=== PATIENT | female | born 1975 | race Hispanic/Latino ===

== ENCOUNTER 2017-09-05 18:02 | Inpatient (IN) | payer OTHER ==
[2017-09-05 18:09] VITALS: O2SAT 98
--- NOTE | 2017-09-05 18:13 | C.PDOC ---
History Of Present Illness Transferred from [facility] for bizarre behaviour, Denies SI or HI Time Seen by Provider: 09/05/17 18:11 Chief Complaint (Nursing): Psychiatric Evaluation History Per: Patient History/Exam Limitations: clinical condition Current Symptoms Are (Timing): Still Present Suicide/Self Injury Attempted (Context): None Modifying Factor(s): None Severity: Mild Recent travel outside of the [place]: No Additional History Per: Patient, Other (transfer records) Past Medical History Reviewed: Historical Data, Nursing Documentation, Vital Signs Vital Signs: Last Vital Signs Temp 98.2 F 09/05/17 18:08 Pulse 102 H 09/05/17 18:08 Resp 20 09/05/17 18:08 BP 121/86 09/05/17 18:08 Pulse Ox 98 09/05/17 18:30 - Medical History PMH: No Chronic Diseases, Bipolar Disorder Surgical History: No Surg Hx Family History: States: Unknown Family Hx - Social History Hx Alcohol Use: No Hx Substance Use: No - Immunization History Hx Tetanus Toxoid Vaccination: No Hx Influenza Vaccination: No Hx Pneumococcal Vaccination: No Review Of Systems Psych: Positive for: Other (behavior problem) Physical Exam - Physical Exam Appears: Non-toxic, No Acute Distress Skin: Normal Color Cardiovascular: Rhythm Regular Respiratory: Normal Breath Sounds Neurological/Psych: Oriented x3 Gait: Steady ED Course And Treatment O2 Sat by Pulse Oximetry: 98 Progress Note: Transferred for Psych admission. Case discussed with garbage worker who request admission - Physician Consult Information Physician Contacted: Sravan Prescott Outcome Of Conversation: admit Disposition Discussed With : Sravan Prescott Doctor Will See Patient In The: Hospital - Disposition Disposition: HOSPITALIZED Disposition Time: 18:30 Condition: STABLE - POA Present On Arrival: None - Clinical Impression Clinical Impression: Bipolar 1 disorder Decision To Admit - Pt Status Changed To: Hospital Disposition Of: Inpatient - Admit Certification Admit to Inpatient:: After my assessment, the patient will require hospitalization for at least two midnights. This is because of the severity of symptoms shown, intensity of services needed, and/or the medical risk in this patient being treated as an outpatient. - InPatient: Physician Admission Certification: I certify that this patient requires 2 or more midnights of care for the following reason:: Bipolar disorder - . Bed Request Type: Psychiatry Admitting Physician: Sravan Prescott Patient Diagnosis: Bipolar 1 disorder
--- NOTE | 2017-09-05 20:45 | PCM.BM ---
<Xavier Ng - Last Filed: 09/06/17 14:58> Treatment Plan Problems - Problems identified on initial assessmt Depression Date Initiated: 09/05/17 Time Initiated: 18:30 Assessment reference: NA Status: Active Treatment assets and liabiliti Patient Assests: ADL independent, physically healthy, good support system Patient Liabilities: live alone - Milieu Protocol Maintain good personal hygiene: daily Encourage regular showers, daily Remind patient to perform daily oral care Maintain personal safety: every shift Educate patient to report safety concerns to staff, every shift Monitor environment for contraband/sharps Medication safety: Monitor for expected outcome, potential side effects: every shift, Assess barriers to learning: every shift, Assess readiness for medication education: every shift <Enedina Segal - Last Filed: 09/07/17 15:45> Family Contact Family involvement: Family/SO is involved Family contact: Patient agrees to contact Family contact name: Denise Stevenson-sister Family contacted how many times per week?: 2 Family contact comment: "We will take patient home." - Goals for Treatment Patient goals for treatment: "I want to go home." Patient's family/SO goals for treatment: "To go back to taking medication." Discharge/Continuing Care - Education Needs Education Needs: Patient Medication, Patient Coping Skills - Discharge Discharge Criteria: Tolerates medication w/o severe side effects, Reduction of target symptoms Discharge to:: Home, With Family - Treatment Team Participation Discussed with Family/SO: Yes ("I agree with her discharge.") Was Patient/Family/SO present at Treatment Team Meeting: Yes <Sravan Prescott - Last Filed: 09/07/17 16:23> - Diagnosis (1) Bipolar 1 disorder Status: Acute Interventions: Assess/at just medications daily and/or as needed See patient on and individual dydyq1r per week to assess status of hallucinations and delusions Discussed risks, benefits, side effects and alternatives of medications. 09/07/17 16:23
--- NOTE | 2017-09-06 18:03 | PCM.PSYCH ---
Initial Psychiatric Evaluation - Initial Psychiatric Evaluation Type of Admission: Voluntary Legal Status: Capacity Chief Complaint (in patient's own words): Yesterday had some argument with my coworker. History of Present Illness and Precipitating Events: Patient is a 42 years old, , employed, greenlandic, female with history of bipolar disorder, noncompliant for last 1 month was transferred from [facility]. Patient reported that she lives and works in [place]. Yesterday she had an argument with her coworker. Her office called the police. Patient was taken to the police station. According to patient, she was released with one of her friend who drove her to [facility] from [place]. Patient was then transferred to [facility]. Patient reported following up with a psychiatrist in [place] and was taking Abilify 5 mg daily. Her psychiatrist changed her Abilify to Seroquel. Patient didn't like Seroquel and stop taking medication for last 1 month. Patient reported she was diagnosed with bipolar disorder 7 years ago. History of multiple admissions in [place]. Denied any depression, sleeping or appetite problem. Denied any current or past suicidal ideations, homicidal ideations or suicidal attempts. Patient reported she drinks alcohol occasionally. Denied use of any other drugs. She was born in [place]. Moved to [facility] in 2002. She is employed, lives alone. She is and has no children. Her height is 5 feet 4-1/2 inches and weight is 155 pounds. Earlier, patient's sister came to the hospital to visit the patient. Patient was informed that the visitations hours or later and patient cannot see her sister. Patient became angry and demanding that the frustration should override policy for her in order for her to see her sister. For many rules patient demanded that the administration should override rules for her as she is special. Current Medications: Active Medications Generic Name Dose Route Start Last Admin Trade Name Freq PRN Reason Stop Dose Admin Aripiprazole 5 mg 09/05/17 23:15 09/05/17 23:20 Abilify PO 5 mg HS ANGELA Administration Benztropine Mesylate 1 mg 09/05/17 20:07 Cogentin PO Q6H PRN EPS symptoms Gabapentin 300 mg 09/06/17 10:00 09/06/17 17:39 Neurontin PO Not Given BID ANGELA Haloperidol 5 mg 10/11/17 20:07 Haldol PO Q6H PRN Agitation Hydroxyzine HCl 25 mg 09/05/17 20:07 09/06/17 00:39 Atarax PO 25 mg Q6H PRN Administration Anxiety Ibuprofen 600 mg 09/06/17 15:45 09/06/17 15:53 Motrin Tab PO 600 mg Q6H PRN Administration Pain, severe (8-10) Past Psychiatric History - Past Psychiatric History Previous Treatment History: Inpatient History of Abuse: None reported History of ETOH/Drug Use: See HPI History of Family Illness: None reported Pertinent Medical Hx (Current Medical&Sleep Prob, Allergies): Allergies Allergy/AdvReac Type Severity Reaction Status Date / Time No Known Allergies Allergy Verified 09/05/17 18:07 No Known Home Med 09/05/17 Review of Systems - Psychiatric Psychiatric: Behavioral Changes, Irritability, Mood Swings Mental Status Examination - Personal Presentation Personal Presentation: Looks stated age - Affect Affect: Other (Angry) - Motor Activity Motor Activity: Psychomotor Agitation - Reliability in Providing Information Reliability in Providing Information: Poor, due to altered mood - Speech Speech: Relevant - Mood Mood: Other (Angry) - Formal Thought Process Formal Thought Process: No Impairment - Hallucinations/Delusions Hallucinations: Other Delusions: Granduer - Obsessions/Compulsions Obsessions: None Compulsions: None - Cognitive Functions Orientation: Person, Place, Situation, Time Sensorium: Alert Attention/Concentration: Attentive Abstract Thinking: [place] Estimate of Intelligence: Average Judgement: Imparied, as evidence by: Lack of insight into illness Memory: Recent intact, as evidence by: Other, Remote intact, as evidenced by: Ability to recall historical events - Risk Risk: Diminished functioning - Strength & Assets Inventory Strength & Assets Inventory: Family support, Cooperative - Limitations Limitations: Living alone DSM 5 DX - DSM 5 DSM 5 Diagnosis: Bipolar 1 disorder most recent episode manic - Recommended/Plan of Treatment Treatment Recommendations and Plan of Treatment: Patient education Supportive therapy We'll start Abilify, gabapentin We'll start other when necessary medications/. Projected ELOS: 8-10 Days - Smoking Cessation Smoking Cessation Initiated: No Reason for not providing: Patient doesn't smoke cigarettes
[2017-09-07 08:31] VITALS: BP 113/68; PULSE 81; RESP 19; TEMP 97.6
--- NOTE | 2017-09-07 16:27 | PCM.PYCHDC ---
Mental Status Examination - Mental Status Examination Orientation: Person, Place, Situation, Time Memory: Intact Mood: Neutral Affect: Other (appropriate) Speech: Appropriate Attention: WNL Concentration: WNL Association: WNL Fund of Knowledge: WNL Formal Thought Process: No Impairment Description of patient's judgement and insight: fair Psychotic Thoughts and Behaviors: none Suicidal Ideation: No Current Homicidal Ideation?: No Discharge Summary - Discharge Note Reason for Hospitalization: bipolar disorder Laboratory Data: reviewed Consultations:: List each consultation separately and include: 1. Reason for request. 2. Findings. 3. Follow-up Summary of Hospital Course include:: 1. Description of specific treatment plan utilized for patients during their course of treatmen. 2. Summarize the time- course for resolution of acute symptoms and/or regressed behaviors. 3. Describe issues identified and worked on during hospitalization. 4. Describe medication utilized. 5. Describe medical problems identified and treated. 6. 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 Patient reported that she lives and works in [place]. Yesterday she had an argument with her coworker. Her office called the police. Patient was taken to the police station. According to patient, she was released with one of her friend who drove her to [facility] from [place]. Patient was then transferred to [facility]. Patient reported following up with a psychiatrist in [place] and was taking Abilify 5 mg daily. Her psychiatrist changed her Abilify to Seroquel. Patient didn't like Seroquel and stop taking medication for last 1 month. Patient reported she was diagnosed with bipolar disorder 7 years ago. History of multiple admissions in [place]. Denied any depression, sleeping or appetite problem. Denied any current or past suicidal ideations, homicidal ideations or suicidal attempts. Patient reported she drinks alcohol occasionally. Denied use of any other drugs. She was born in [place]. Moved to [facility] in 2002. She is employed, lives alone. She is and has no children. Her height is 5 feet 4-1/2 inches and weight is 155 pounds. Earlier, patient's sister came to the hospital to visit the patient. Patient was informed that the visitations hours or later and patient cannot see her sister. Patient became angry and demanding that the frustration should override policy for her in order for her to see her sister. For many rules patient demanded that the administration should override rules for her as she is special. During her visit ended patient patient was treated with Abilify. Patient was angry and loud at times but redirectable. Family also involved poor patient care. Today patient was feeling better. Family intervened, wants to take patient home. Had family meeting with sister and [id number]. Sister and [id number] both took responsibility of the patient. And also that if patient will have any worsening of symptoms were taken patient to ER for evaluation and treatment. At the time of evaluation and discharg, patient was awake alert oriented 3, had no delusions, no auditory or visual hallucinations, no suicidal ideations or homicidal omid.Patient was discharged in a stable condition with the family. - Diagnosis (1) Bipolar 1 disorder Current Visit: Yes Status: Acute - Final Diagnosis (DSM 5) Condition upon Discharge: STABLE Disposition: HOME/ ROUTINE Prescriptions/Medication Reconciliation: ARIPiprazole [Abilify] 5 mg PO ONCE #30 tab - Smoking Cessation Smoking Cessation Medication prescribed: No - Antipsychotic Medications Pt discharged on 2 or more routine antipsychotic medications: No
== END 2017-09-07 16:00 | disposition home or self-care (01) | DRG 885 ==
LOC: C.ER 18:02 → C.5E 18:12
DX: F31.9 Bipolar disorder, unspecified (principal); Z91.19 Patient's noncompliance with other medical treatment and regimen